=== PATIENT | female | born 1995 | race Caucasian/White ===

== ENCOUNTER 2021-04-07 11:53 | Emergency (ER) | payer BC, OTHER ==
[~2021-04-07] VITALS: Ht 175.3 cm; Wt 63.5 kg
[2021-04-07] MEDS ORDERED: LIDOCAINE HCL 1% 20 ML VIAL ONE (13:17)
[2021-04-07] MEDS ORDERED: LIDOCAINE HCL 1% 20 ML VIAL IJ ONE (13:45)
--- NOTE | 2021-04-07 13:46 | NUR ---
Patient discharged to home in stable condition. Written and verbal after care instructions given. Patient verbalizes understanding of instructions. Stressed follow up or return to ER for worsening s/s.
== END 2021-04-07 13:46 | disposition home or self-care (01) ==
LOC: ER 11:53
DX: S61.211A Laceration without foreign body of left index finger without damage to nail, initial encounter (principal); W26.9XXA Contact with unspecified sharp object(s), initial encounter; Y92.89 Other specified places as the place of occurrence of the external cause
CPT/HCPCS: 12001; 99282; J3490; A4217; A4663

== ENCOUNTER 2021-04-08 16:14 | Emergency (ER) | payer BC, OTHER ==
[~2021-04-08] VITALS: Ht 172.7 cm; Wt 63.5 kg
== END 2021-04-08 16:59 | disposition home or self-care (01) ==
LOC: ER 16:16
DX: S61.211A Laceration without foreign body of left index finger without damage to nail, initial encounter (principal); W26.8XXA Contact with other sharp object(s), not elsewhere classified, initial encounter; Y92.89 Other specified places as the place of occurrence of the external cause
CPT/HCPCS: A4663

== ENCOUNTER 2021-04-10 19:05 | Emergency (ER) | payer BC, OTHER ==
[~2021-04-10] VITALS: Ht 175.3 cm; Wt 63.5 kg
--- NOTE | 2021-04-10 19:11 | NUR ---
PT AMBULATED TO ER WITH C/O WOUND EVAL ON LEFT INDEX FINGER, SEEN HERE ON TUESDAY AND TUESDAY THIS WEEK. A/O X4, NO SOB OR LABORED BREATHING, AFEBRILE.
--- NOTE | 2021-04-10 19:35 | NUR ---
DR. JEFFRIES AT BEDSIDE, MSE IN PROGRESS.
--- NOTE | 2021-04-10 20:00 | NUR ---
Patient discharged to home in stable condition. A/O X4, denies any pain/discomfort Written and verbal after care instructions given. Patient verbalizes understanding of instructions. Stressed follow up or return to ER for worsening s/s. Steady gait.
[2021-04-10 20:03] VITALS: BP 117/76
== END 2021-04-10 19:55 | disposition home or self-care (01) ==
LOC: ER 19:27
DX: S61.211D Laceration without foreign body of left index finger without damage to nail, subsequent encounter (principal); W45.8XXD Other foreign body or object entering through skin, subsequent encounter
CPT/HCPCS: A4663